=== PATIENT | female | born 1965 | race Caucasian/White ===

== ENCOUNTER 2018-12-25 07:37 | Day surgery (SDC) | payer MEDICAID ==
[~2018-12-25 07:37] MED LIST: Sodium Chloride 0.9% 10 ML Syringe FLUSH PRN
[2018-12-25] MEDS ORDERED: Lactated Ringers 1,000 ML IV ONE (07:38)
[2018-12-25] MEDS ORDERED: Midazolam 1 MG/ML 2 ML SDV IV ONE (07:38)
[2018-12-25] MEDS ORDERED: Dexamethasone 4 MG/ML 5 ML MDV IVPUSH ONE (07:38)
[2018-12-25] MEDS ORDERED: Dexmedetomidine 200 MCG/2 ML SDV IV ONE (07:38)
[2018-12-25] MEDS ORDERED: Ondansetron 4 MG/2 ML SDV IVPUSH ONE (07:38)
[2018-12-25] MEDS ORDERED: Ketorolac 30 MG/ML SDV IVPUSH ONE (07:38)
[2018-12-25] MEDS ORDERED: Ketamine 500 mg/10 ML MDV IV ONE (07:38)
[2018-12-25] MEDS ORDERED: fentaNYL 100 MCG/2 ML SDV IV ONE (07:38)
[2018-12-25] MEDS ORDERED: Succinylcholine 200 MG/10 ML MDV IV ONE (07:38)
[2018-12-25] MEDS ORDERED: Propofol 200 MG/20 ML SDV IV ONE ×2 (07:38)
[2018-12-25] MEDS: Lactated Ringers 1,000 ML IV SCH (11:30)
--- NOTE | 2018-12-25 13:19 | PCM.HPR ---
H & P Addendum review - H & P Addendum Review Date of Original H & P: 12/21/18 Date Reviewed: 12/25/18 Time Reviewed: 13:19 Patient was Examined: No Changes
[2018-12-25] MEDS ORDERED: Isosulfan Blue 5 ML SDV SUBCUT ONE (13:49)
[2018-12-25] MEDS ORDERED: Acetaminophen/HYDROcodone 325-5 MG Tab PO PRN (15:35)
--- NOTE | 2018-12-25 15:35 | PCM.OPNOTE ---
- General Post-Op/Procedure Note Date of Surgery/Procedure: 12/25/18 Operative Procedure(s): R Mastectomy and [place] Node Bx Pre Op Diagnosis: R Breast Ca Post-Op Diagnosis: Same Anesthesia Technique: General ET Tube Primary Surgeon: Mani Espinoza Anesthesia Provider: Tamika Adams Pathology: R Breast and nodes EBL in mLs: 150 Surgical Drain/Tube Type: Kenneth Thomas Flat Drain Complications: None Condition: Good
[2018-12-25] MEDS ORDERED: Lactated Ringers 1,000 ML IV SCH (15:45)
--- NOTE | 2018-12-25 23:26 | OR ---
DATE OF OPERATION: 12/25/2018 SURGEON: Mani Espinoza MD PREOPERATIVE DIAGNOSES: 1. Right breast cancer. 2. Follicular lymphoma. POSTOPERATIVE DIAGNOSIS: 1. Right breast cancer. 2. Follicular lymphoma. PROCEDURE: 1. Right mastectomy with sentinel node biopsy. 2. Injection of technetium-99 sulfur colloid. 3. Injection of the Lymphazurin blue. ANESTHESIA: General. DESCRIPTION OF PROCEDURE: The patient was initially injected with technetium-99 sulfur colloid in the morning in the right lateral areolar region. She was later brought to the operating room where general endotracheal anesthesia was administered. 3 mL of Lymphazurin blue was injected in the right subareolar space. Her right chest and axilla were prepped with ChloraPrep and draped sterilely. Routine mastectomy incisions were made elliptically and skin flaps were raised superiorly just below the clavicle, medially to the sternum, laterally to the latissimus dorsi and inferiorly onto the chest wall. Breast tissue was then removed off the pectoral muscle using electrocautery. Bleeders were controlled with cautery and a couple of large ones in the pectoral muscle ligated with 2-0 Vicryl suture ligatures. The breast was then placed in formalin for permanent section. I did nicole the tail of the breast for the pathologist. The Neoprobe was used to scan the axilla prior to beginning surgery, and the maximal activity was along the lateral pectoral muscle. Retraction was performed on the upper lateral skin flap, and this area of maximal activity was found. The sentinel node was then dissected free and 10 second count was 61,019. A second adjacent node had a 10 second count of 39,698. In that same area, two large fleshy nodes over a centimeter in diameter were present. These did not have any activity with the Neoprobe but were suspicious for lymphoma, so I did remove these two lymph nodes also. I did find two more sentinel nodes with 10 second counts of 5807 and 3142. All the nodes were sent for x-ray, and none of them has the metallic clip in from her previous biopsy. The axilla was otherwise grossly normal without any lymphadenopathy present. Wound was thoroughly irrigated, and hemostasis was assured. The skin flaps were reapproximated with 2-0 Vicryl subcutaneous sutures and skin closed with sofia. A quarter-inch round flat Davol drain had been placed prior to final closure and secured to the skin with 2-0 silk. A bulky sterile pressure dressing was applied. The patient tolerated the procedure well. The patient did appear to have a bronchospasm after extubation and was reintubated until it was felt safe to re-extubate. She tolerated the procedure well. ESTIMATED BLOOD LOSS: 150 mL. DISPOSITION: She returned to postanesthesia in stable condition. /[id number] [facility]/CHANG
[2018-12-26] MEDS: Lactated Ringers 1,000 ML IV SCH ×2 (00:13→08:44)
--- NOTE | 2018-12-26 11:21 | MY ---
INDICATION: Surgery, excision. MAMMOGRAPHY, SURGICAL SPECIMEN BREAST: Two sets of images of the five surgical specimens were obtained, none of which showed evidence of a metallic body compatible with a biopsy clip or coil. BERNARDOD
--- NOTE | 2018-12-26 14:38 | PCM.SURGPN ---
- General Info Date of Service: 12/26/18 POD#: 1 Functional Status: Reports: Pain Controlled, Tolerating Diet, Ambulating - Review of Systems General: Reports: No Symptoms - Patient Data Vitals - Most Recent: Last Vital Signs Temp 98.4 F 12/26/18 05:00 Pulse 76 12/26/18 05:00 Resp 16 12/26/18 05:00 BP 117/72 12/26/18 05:00 Pulse Ox 96 12/26/18 05:00 Weight - Most Recent: 101.151 kg I&O - Last 24 Hours: Intake & Output 12/25/18 12/26/18 12/26/18 22:59 06:59 14:59 Intake Total 760 900 Output Total 632 336 Balance 128 564 Lab Results Last 24 Hrs: Laboratory Results - last 24 hr 12/25/18 Range/Units 14:25 Potassium 3.3 L (3.5-5.3) mmol/L Med Orders - Current: Current Medications Hydrocodone Bitart/Acetaminophen ([place] 325-5 Mg) 1 tab PO Q4H PRN PRN Reason: Pain (mild 1-3) Lactated Ringer's (Ringers, Lactated) 1,000 mls @ 125 mls/hr IV ASDIRECTED [facility] Last Admin: 12/26/18 08:44 Dose: 125 mls/hr Lactated Ringer's (Ringers, Lactated) 1,000 mls @ 125 mls/hr IV ASDIRECTED [facility] Last Admin: 12/25/18 16:55 Dose: 125 mls/hr Sodium Chloride (Saline Flush) 10 ml FLUSH ASDIRECTED PRN PRN Reason: Keep Vein Open Discontinued Medications Isosulfan Blue (Lymphazurin 1%) 3 ml SUBCUT .STK-MED ONE Stop: 12/25/18 13:50 Last Admin: 12/25/18 13:49 Dose: 3 ml - Exam Wound/Incisions: Healing Well, Dressing Dry and Intact, No Drainage, Other (MICA fuctions well, seroues output) - Problem List Review Problem List Initiated/Reviewed/Updated: Yes - My Orders Last 24 Hours: Active Orders 24 hr Category Date Time Status Drain Management [RC] Q4HR Care 12/25/18 15:36 Active Oxygen Therapy [RC] PRN Care 12/25/18 15:35 Active RT Incentive Spirometry [RC] Q2HWA Care 12/25/18 15:35 Active Ready for Discharge [RC] PER UNIT ROUTINE Care 12/26/18 14:37 Ordered Vital Signs [RC] Q4H Care 12/25/18 15:35 Active Regular Diet [DIET] Diet 12/25/18 Dinner Ordered Acetaminophen/HYDROcodone [[place] 325-5 MG] Med 12/25/18 15:35 Active 1 tab PO Q4H PRN Lactated Ringers [Ringers, Lactated] 1,000 ml Med 12/25/18 15:45 Active IV ASDIRECTED Code Status [Resuscitation Status] Routine Resus Stat 12/26/18 08:56 Ordered Medication Orders Hydrocodone Bitart/Acetaminophen ([place] 325-5 Mg) 1 tab PO Q4H PRN PRN Reason: Pain (mild 1-3) Lactated Ringer's (Ringers, Lactated) 1,000 mls @ 125 mls/hr IV ASDIRECTED [facility] Last Admin: 12/26/18 08:44 Dose: 125 mls/hr Infusion: 12/26/18 08:13 Dose: 125 mls/hr Admin: 12/26/18 00:13 Dose: 125 mls/hr Infusion: 12/25/18 19:30 Dose: 125 mls/hr Admin: 12/25/18 11:30 Dose: 125 mls/hr Lactated Ringer's (Ringers, Lactated) 1,000 mls @ 125 mls/hr IV ASDIRECTED [facility] Last Admin: 12/25/18 16:55 Dose: 125 mls/hr Sodium Chloride (Saline Flush) 10 ml FLUSH ASDIRECTED PRN PRN Reason: Keep Vein Open - Assessment Assessment (Free Text/Narrative):: Doing well - Plan Plan (Free Text/Narrative):: Discharge
[2018-12-26 16:11] VITALS: BP 114/63
== END 2018-12-26 15:10 | disposition home or self-care (01) ==
LOC: FB.SDS 07:37 → FB.MS 16:34 → FB.SDS 12-26 15:10
PROVIDERS: ATTEND Surgery
DX: C50.111 Malignant neoplasm of central portion of right female breast (principal); C77.3 Secondary and unspecified malignant neoplasm of axilla and upper limb lymph nodes; I10 Essential (primary) hypertension; Z17.0 Estrogen receptor positive status [ER+]; J45.909 Unspecified asthma, uncomplicated; Z87.891 Personal history of nicotine dependence
CPT/HCPCS: 00400; 19303; 36415; 38525; 38792; 76098; 78800; 84132; 88305; 88307; 88341; 88342; 88360; A9541; J0330; J1100; J1885; J2250; J2405; J2704; J3010; J7120; Q9968

== ENCOUNTER 2024-10-30 05:41 | Emergency (ER) | payer MEDICAID ==
[2024-10-30] MEDS ORDERED: Sodium Chloride 0.9% 10 ML Syringe FLUSH PRN (06:15)
[2024-10-30 07:11] LABS: BASE EXCESS VENOUS,POC 5 mmol/L (-2 - 3+); PCO2 VENOUS,POC 30 mmHg (41-51); PH VENOUS,POC 7.57 pH Units (7.32-7.43)
[2024-10-30 07:11] LABS: BASOPHILS PERCENT AUTO 0.3 % (0.2-1.5); EOSINOPHILS ABSOLUTE AUTO 0.3 x10-3/uL (0.0-0.8); EOSINOPHILS PERCENT AUTO 2.9 % (0.6-8.1); HEMATOCRIT 25.7 % (34.2-48.2); HEMOGLOBIN 8.5 g/dL (11.4-15.5); LYMPHOCYTES ABSOLUTE AUTO 1.2 x10-3/uL (1.0-4.4); MEAN CORPUSCULAR HEMOGLOBIN 28.8 pg (23.9-33.9); MEAN CORPUSCULAR VOLUME 87.5 fL (76.7-100.5); MEAN PLATELET VOLUME 8.1 fL (7.1-12.4); MONOCYTES ABSOLUTE AUTO 0.6 x10-3/uL (0.3-1.0); NEUTROPHILS ABSOLUTE AUTO 6.9 x10-3/uL (1.5-6.3); NEUTROPHILS PERCENT AUTO 76.8 % (30.8-76.2); PLATELET COUNT,PLT 344 x10(3)uL (151-488); RED BLOOD CELL COUNT 2.94 x10(6)uL (3.60-5.20); RED CELL DISTRIBUTION WIDTH 16.1 % (12.3-16.5); WHITE BLOOD CELL COUNT,WBC 8.9 x10-3/uL (3.0-10.3)
[2024-10-30 07:24] LABS: TROPONIN I 7.1 pg/mL (4.0-60.3)
[2024-10-30 07:25] LABS: BLOOD UREA NITROGEN,BUN 16 mg/dL (7-18); BUN/CREATININE RATIO 13.3 (9-20); CALCIUM 8.5 mg/dL (8.6-10.2); CARBON DIOXIDE,CO2 24 mmol/L (21-32); CHLORIDE,CL 100 mmol/L (100-110); CREATININE 1.2 mg/dL (0.55-1.02); ESTIMATED GFR 52 mL/min (>60); GLUCOSE RANDOM 97 mg/dL (80-116); POTASSIUM,K 3.7 mmol/L (3.5-5.3); SODIUM,NA 134 mmol/L (135-145)
[2024-10-30 07:29] LABS: C-REACTIVE PROTEIN 7.86 mg/dL (<0.50)
[2024-10-30 07:31] LABS: A/G RATIO 0.5; ALANINE AMINOTRANSFERASE,ALT 32 U/L (12-36); ALBUMIN 2.8 g/dL (3.2-4.6); ALKALINE PHOSPHATASE 342 IU/L (56-112); ASPARTATE AMNIOTRANSFERASE,AST 77 IU/L (5-25); BILIRUBIN TOTAL 0.4 mg/dL (0.1-1.3); MAGNESIUM 2.1 mg/dL (1.8-2.5)
[2024-10-30] MEDS: Albuterol/Ipratropium 3.0-0.5 MG/3 ML Neb Soln NEB ONE (08:05)
[2024-10-30 08:22] VITALS: BP 132/76; PULSE 95
== END 2024-10-30 08:23 | disposition home or self-care (01) ==
LOC: FB.ED 05:41
DX: J45.41 Moderate persistent asthma with (acute) exacerbation (principal); J10.1 Influenza due to other identified influenza virus with other respiratory manifestations; J94.8 Other specified pleural conditions; I10 Essential (primary) hypertension; Z79.899 Other long term (current) drug therapy
CPT/HCPCS: 36415; 71046; 80053; 83735; 83880; 84484; 85025; 85379; 86140; 87428-QW; 93005; 99285; J7620

== ENCOUNTER 2025-04-02 10:42 | Emergency (ER) | payer MEDICAID ==
[2025-04-02 11:39] LABS: BASOPHILS ABSOLUTE AUTO 0.1 x10-3/uL (0.0-0.1); BASOPHILS PERCENT AUTO 0.7 % (0.2-1.5); EOSINOPHILS ABSOLUTE AUTO 0.1 x10-3/uL (0.0-0.8); EOSINOPHILS PERCENT AUTO 1.4 % (0.6-8.1); LYMPHOCYTES ABSOLUTE AUTO 1.1 x10-3/uL (1.0-4.4); LYMPHOCYTES PERCENT AUTO 12.8 % (18.4-52.1); MEAN PLATELET VOLUME 7.4 fL (7.1-12.4); MONOCYTES ABSOLUTE AUTO 0.9 x10-3/uL (0.3-1.0); MONOCYTES PERCENT AUTO 9.8 % (4.4-15.7); NEUTROPHILS ABSOLUTE AUTO 6.7 x10-3/uL (1.5-6.3); NEUTROPHILS PERCENT AUTO 75.3 % (30.8-76.2); PLATELET COUNT,PLT 451 x10(3)uL (151-488); RED BLOOD CELL COUNT 2.98 x10(6)uL (3.60-5.20); RED CELL DISTRIBUTION WIDTH 15.9 % (12.3-16.5); WHITE BLOOD CELL COUNT,WBC 8.8 x10-3/uL (3.0-10.3)
[2025-04-02 11:47] LABS: BLOOD UREA NITROGEN,BUN 23 mg/dL (7-18); CARBON DIOXIDE,CO2 28 mmol/L (21-32); CHLORIDE,CL 97 mmol/L (100-110); CREATININE 0.9 mg/dL (0.55-1.02); EST CRCL DRUG DOSING (CG) 59.07 mL/min; ESTIMATED GFR 73 mL/min (>60); GLUCOSE RANDOM 112 mg/dL (80-116); POTASSIUM,K 3.6 mmol/L (3.5-5.3); SODIUM,NA 134 mmol/L (135-145)
[2025-04-02 11:53] LABS: A/G RATIO 0.5; ALANINE AMINOTRANSFERASE,ALT 15 U/L (12-36); ASPARTATE AMNIOTRANSFERASE,AST 23 IU/L (5-25); BILIRUBIN TOTAL 0.6 mg/dL (0.1-1.3); PROTEIN TOTAL,TP 8.7 g/dL (6.0-8.0)
[2025-04-02] MEDS: Iopamidol 755 Mg/ML 100 ML Bottle IV ONE (13:08)
[2025-04-02 14:12] VITALS: BP 125/78; PULSE 106
== END 2025-04-02 14:20 | disposition home or self-care (01) ==
LOC: FB.ED 10:42
DX: J90 Pleural effusion, not elsewhere classified (principal); C85.90 Non-Hodgkin lymphoma, unspecified, unspecified site; C50.919 Malignant neoplasm of unspecified site of unspecified female breast; I10 Essential (primary) hypertension; Z79.899 Other long term (current) drug therapy
CPT/HCPCS: 36415; 71045; 71275; 80053; 83880; 85025; 85379; 99284; 99285; Q9967